=== PATIENT | male | born 1945 | race Caucasian/White ===

== ENCOUNTER 2021-08-07 14:15 | Inpatient (IN) | payer OTHER ==
[~2021-08-07] VITALS: Ht 172.7 cm; Wt 67.1 kg
[2021-08-07 14:19] VITALS: BP 141/84
[2021-08-07 14:48] VITALS: BP 152/58
--- NOTE | 2021-08-07 15:18 | NUR ---
PT AMBULATED WITH WALKER TO ER BED 12
--- NOTE | 2021-08-07 16:27 | NUR ---
RAD AT BEDSIDE
--- NOTE | 2021-08-07 16:29 | NUR ---
PATIENT DISCONNECTED FROM [employer]IST [employer] AND TX TO CT VIA GURNEY.
--- NOTE | 2021-08-07 16:31 | NUR ---
PT TAKEN TO CT VIA RICHARD
--- NOTE | 2021-08-07 16:35 | NUR ---
75 y/o M BIB daughter for ER evaluation from [facility] for + UA and request for IV antibiotics. Per daughter, patient c/o 1.5 weeks of dysuria. Daughter states (-) 07/29 but advised patient needs IV ABX after recent work-up. Pt also states left jaw pain. Non-complaint and decreased appetite. Denies fever, falls, SOB, nausea, vomiting, diarrhea. 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
[2021-08-07 17:23] LABS: BASOPHILS % (AUTO) 0.7 % (0.0-2.0); EOSINOPHILS # (AUTO) 0.2 K/uL (0-0.4); EOSINOPHILS % (AUTO) 3.1 % (0.0-4.0); HEMATOCRIT 40.1 % (36-52); HEMOGLOBIN 13.2 g/dL (12.0-18.0); LYMPHOCYTES % (AUTO) 19.5 % (20.5-51.1); MEAN CORPUSCULAR HEMOGLOBIN 30 pg (27-31); MEAN CORPUSCULAR HGB CONC 33 g/dL (33-37); MEAN CORPUSCULAR VOLUME 92.4 fL (80-94); MONOCYTES # (AUTO) 0.6 K/uL (0.8-1.0); MONOCYTES % (AUTO) 11.5 % (1.7-9.3); NEUTROPHILS # (AUTO) 3.3 K/uL (1.8-7.7); NEUTROPHILS % (AUTO) 65.2 % (42.2-75.2); PLATELET COUNT (AUTO) 144 K/uL (140-450); RED BLOOD CELL COUNT(AUTO) 4.34 MIL/uL (4.20-6.10); RED CELL DISTRIBUTION WIDTH 14.7 % (11.6-13.7); WHITE BLOOD COUNT (AUTO) 5.1 K/uL (4.8-10.8)
[2021-08-07 17:58] LABS: ALBUMIN 3.8 g/dL (3.4-5.0); ASPARTATE AMINOTRANSFERASE 19 U/L (15-37); CARBON DIOXIDE 29.1 mmol/L (21-32); CHLORIDE 103 mmol/L (98-107); GLUCOSE 111 mg/dL (74-106); POTASSIUM 4.1 mmol/L (3.5-5.1); SODIUM SERUM 137 mmol/L (136-145); TOTAL BILIRUBIN 0.5 mg/dL (0.0-1.0); UREA NITROGEN, BLOOD 21 mg/dL (7-18)
[2021-08-07 18:11] LABS: APPEARANCE,URINE CLEAR (CLEAR); BILIRUBIN,URINE NEGATIVE (NEGATIVE); BLOOD, URINE NEGATIVE (NEGATIVE); COLOR,URINE YELLOW (YELLOW); LEUKOCYTE ESTERASE ,URINE TRACE (NEGATIVE); NITRITE, URINE NEGATIVE (NEGATIVE); UGLUCOSE NEGATIVE (NEGATIVE)
[2021-08-07] MEDS ORDERED: PIPERACILLIN/TAZOBACTAM 3.375 GM in DEXTROSE 5% 50 ML IV ONE (18:50)
--- NOTE | 2021-08-07 18:55 | NUR ---
SWABS HANDED TO LAB
[2021-08-07] MEDS ORDERED: PIPERACILLIN/TAZOBACTAM 3.375 GM VIAL IV ONE (18:56)
[2021-08-07] MEDS ORDERED: NACL 0.9% 1,000 ML IV SCH (19:00)
--- NOTE | 2021-08-07 19:09 | NUR ---
Love (daughter) [phone] Requesting to be contacted upon bed placement.
--- NOTE | 2021-08-07 19:13 | NUR ---
Pt report given to MARVIN GALLEGOS. Transfer of care at this time.
--- NOTE | 2021-08-07 19:15 | NUR ---
RESTING COMFORTABLY IN BED 12. DAUGHTER HAS BEEN AT BEDSIDE AND IS TAKING BAG OF BELONGINGS HOME WITH HER. PTS WALKER AND SHOES BEING LEFT WITH HIM.
[2021-08-07] MEDS ORDERED: FLUO10CA21 PO (19:17)
[2021-08-07] MEDS ORDERED: ISOS60TE70 PO (19:17)
[2021-08-07] MEDS ORDERED: TAMS0.4C96 PO (19:17)
[2021-08-07] MEDS ORDERED: APIX5TAB PO (19:17)
[2021-08-07] MEDS ORDERED: MEMA5TAB PO (19:17)
[2021-08-07] MEDS ORDERED: ATOR40TA PO (19:17)
[2021-08-07] MEDS ORDERED: CARV6.25 PO (19:17)
[2021-08-07] MEDS ORDERED: SACU1TAB PO (19:17)
--- NOTE | 2021-08-07 20:55 | NUR ---
TO 122A VIA [employer]. BEDSIDE REPORT GIVEN TO EL SMITH
--- NOTE | 2021-08-07 21:00 | NUR ---
RECEIVED PT FROM ER VIA GURNEY. AWAKE, ALERT AND CONFUSED. VITAL SIGNS UPON ARRIVAL B/P-143/64; P-59; R-18; T-97.4;O2 SAT 99% ROOM AIR. NO SOB OR DISTRESS. NOT IN RAYO CATHETER. IV SITE IS ON RIGHT AC 20 G.
[2021-08-07] MEDS ORDERED: guaiFENesin DM 200/20 MG-10 ML 10 ML UDC PO PRN (22:55)
[2021-08-07] MEDS ORDERED: ONDANSETRON 4 MG/2 ML VIAL IM/IVP PRN (22:55)
[2021-08-07] MEDS ORDERED: POTASSIUM CHLORIDE 10 MEQ TABER PO PRN (22:55)
[2021-08-07] MEDS ORDERED: HYDROcodone/APAP 7.5/325 MG 1 TAB PO PRN (22:55)
[2021-08-07] MEDS ORDERED: ACETAMINOPHEN 325 MG TAB PO PRN (22:55)
[2021-08-07] MEDS ORDERED: ZOLPIDEM 5 MG TAB PO PRN (22:55)
[2021-08-07] MEDS ORDERED: DOCUSATE SODIUM 100 MG GELCAP PO PRN (22:55)
[2021-08-07 23:30] LABS: CHOL/HDL RATIO 2.7 (1-4.5); FREE T4 (FREE THYROXINE) 1.47 ng/dL (0.76-1.46); MAGNESIUM 2.4 mg/dL (1.8-2.4); PHOSPHORUS 4.6 mg/dL (2.5-4.9); THYROID STIMULATING HORMONE 0.46 uIU/mL (0.34-3.74)
[2021-08-07] MEDS: NACL 0.9% 1,000 ML IV SCH (23:33)
[2021-08-08] MEDS ORDERED: PIPERACILLIN/TAZOBACTAM 2.25 GM VIAL IV ONE ×2 (01:00→05:09)
--- NOTE | 2021-08-08 01:00 | NUR ---
PT IS ON STABLE CONDITION AND ASLEEP. IVF OF NACL RUNNING WELL AT 100 ML/HR, INTACT AND PATENT.
[2021-08-08] MEDS: NACL 0.9% 1,000 ML IV SCH ×2 (03:30→12:00)
[2021-08-08 04:00] VITALS: BP 151/76
[2021-08-08 05:38] LABS: BASOPHILS % (AUTO) 1.3 % (0.0-2.0); EOSINOPHILS # (AUTO) 0.2 K/uL (0-0.4); EOSINOPHILS % (AUTO) 6.7 % (0.0-4.0); HEMATOCRIT 42.1 % (36-52); LYMPHOCYTES # (AUTO) 1.1 K/uL (2.0-11.5); LYMPHOCYTES % (AUTO) 30.5 % (20.5-51.1); MEAN CORPUSCULAR HEMOGLOBIN 31 pg (27-31); MEAN CORPUSCULAR HGB CONC 33 g/dL (33-37); MEAN CORPUSCULAR VOLUME 91.9 fL (80-94); MONOCYTES # (AUTO) 0.4 K/uL (0.8-1.0); MONOCYTES % (AUTO) 11.8 % (1.7-9.3); NEUTROPHILS # (AUTO) 1.8 K/uL (1.8-7.7); NEUTROPHILS % (AUTO) 49.7 % (42.2-75.2); PLATELET COUNT (AUTO) 131 K/uL (140-450); RED BLOOD CELL COUNT(AUTO) 4.58 MIL/uL (4.20-6.10); RED CELL DISTRIBUTION WIDTH 15.1 % (11.6-13.7); WHITE BLOOD COUNT (AUTO) 3.7 K/uL (4.8-10.8)
[2021-08-08 05:53] LABS: ANION GAP 8.1 (8-16); CARBON DIOXIDE 29.4 mmol/L (21-32); CHLORIDE 106 mmol/L (98-107); GLUCOSE 98 mg/dL (74-106); POTASSIUM 3.5 mmol/L (3.5-5.1); SODIUM SERUM 140 mmol/L (136-145); UREA NITROGEN, BLOOD 13 mg/dL (7-18)
[2021-08-08] MEDS: PIPERACILLIN/TAZOBACTAM 2.25 GM in DEXTROSE 5% 50 ML IV SCH ×5 (06:00→17:18)
--- NOTE | 2021-08-08 06:00 | NUR ---
PT IS ASLEEP, IVF NACL IS RUNNING WELL WITH NO SIGN/SYMPTOM OF INFECTION ON IV SITE. ANTIBIOTIC ZOSYN GIVEN ORDERED WITH NO SIDE REACTION.
[2021-08-08 08:00] VITALS: BP 154/79
--- NOTE | 2021-08-08 08:00 | NUR ---
received report from the night nurse, pt is resting IN BED AWAKE.[email or web address]
[2021-08-08] MEDS: PANTOPRAZOLE 40 MG TABEC PO SCH (09:46)
--- NOTE | 2021-08-08 11:50 | NUR ---
DC PLANNING: THE PATIENT PRESENTED FROM [facility] WITH C/O DYSURIA, OUTPATIENT UA RESULTS REVIEWED BY ED MD WHICH SHOWS KLEBSIELLA. PATIENT HAS ALSO C/O JAW PAIN WITH DECREASED PO INTAKE. H/O DEMENTIA, HTN, CHF, APHASIA, CVA, CABG AND AICD. BNP 214, CXR AND MANDIBLE XRAY NEGATIVE FOR ACUTE FINDINGS, CT HEAD CONFIRMS H/O CVA. THE PATIENT WAS STARTED ON ZOSYN IV AND IVF'S. CM SPOKE WITH THE PATIENTS DAUGHTER MELISSA AT BEDSIDE, THE PATIENT HAS BEEN LIVING AT [facility] SINCE APRIL OF THIS YEAR. HE IS APHASIC AND PRIMARILY INTERACTIVE. HE WAS TREATED AT [facility] POST CVA AND THEN WENT TO [facility]. HE IS ABLE TO AMBULATE USING A FWW WITH STAND BY ASSIST BUT IS TOTAL CARE FOR ADL'S. MELISSA [place] IN THE [place] AND HAS ASKED THAT HER COUSIN AYAH PRATHER ([phone]) BE CONTACTED IF SHE IS UNAVAILABLE. IF THE PATIENT NEEDS CONTINUED IV ABX MELISSA WOULD LIKE HIM TO BE REFERRED TO [facility]. CM WILL FOLLOW.
--- NOTE | 2021-08-08 12:17 | NUR ---
GIGI PLANNING PATIENT HAS HX OF DEMENTIA AND IS APHESIC. SW MET WITH PATIENTS DAUGHTER MELISSA CASTREJON. MS. CASTREJON REPORTS BEING PATIENTS DPOA AND REPORTS PROVIDING COPY TO MEDICAL RECORDS. MS. CASTREJON REQUESTED ADDING AYAH PRATHER (RELATIVE) TO EMERGENCY CONTACT [phone]. MS. CASTREJON REPORTS THAT PATIENT HAS BEEN A RESIDENT OF [facility] SINCE MAY 07, 2021. PATIENT WAS WITH [facility] FOR TWO WEEKS IN AUGUST 19 AND THEN MOVED TO [facility] UNDER RESIDENTIAL CARE FOR 7 MONTHS BEFORE BEING PLACED AT [facility] IN APRIL 2021. PATIENT WAS DIAGNOSED WITH DEMENTIA IN SEPTEMBER 18. PATIENT IS REPORTED TO HAVE BEEN MEDICATION COMPLIANT UP UNTIL TWO WEEKS AGO. MS. CASTREJON REPORTS THAT PATIENT IS TOTAL ASSIST WITH THE FACILITY PROVIDING ASSISTANCE WITH ALL ADL'S. PATIENT IS FOLLOWED BY DR. GILL. MS. CASTREJON REPORTS THAT SHE IS WORKING CLOSELY IS WORKING CLOSELY WITH [facility] NURSE, WHO HAS BEEN IN TOUCH WITH YOVANAGIANLUCA GRACE IN THE EVENT THAT FATHER MUST BE IN SKILLED CARE FOR IV ANTIBIOTICS BEFORE RETURNING TO [facility].SW TO FOLLOW NEEDED.
[2021-08-08 12:58] VITALS: BP 154/79
[2021-08-08 16:00] VITALS: BP 146/73
--- NOTE | 2021-08-08 16:00 | NUR ---
PATIENT HAS BEEN SCREENED AND CATEGORIZED MODERATE NUTRITION RISK. PATIENT WILL BE SEEN WITHIN 3-5 DAYS OF ADMISSION. ANGELICA GREY RD
[2021-08-08 20:00] VITALS: BP 124/73
[2021-08-08] MEDS: ATORVASTATIN 20 MG TAB PO SCH (21:41)
[2021-08-08] MEDS: APIXABAN 2.5 MG TAB PO SCH (21:41)
--- NOTE | 2021-08-08 21:41 | NUR ---
ALL 2100 SCHEDULED MEDICATIONS ADMINISTERED ORDERED BY .
[2021-08-08] MEDS: carvediloL 6.25 MG TAB PO SCH (21:43)
[2021-08-09] VITALS: BP 128/65
[2021-08-09] MEDS: PIPERACILLIN/TAZOBACTAM 2.25 GM in DEXTROSE 5% 50 ML IV SCH ×3 (00:58→11:36)
--- NOTE | 2021-08-09 03:39 | NUR ---
PATIENT IS SLEEPING. NO SOB NOTED. RESPIRATION EVEN UNLABORED. CALL LIGHT WITHIN REACH.
--- NOTE | 2021-08-09 06:40 | NUR ---
ZOSYN ADMINISTERED ORDERED BY
[2021-08-09 06:53] LABS: ANION GAP 6.4 (8-16); CARBON DIOXIDE 29.6 mmol/L (21-32); CHLORIDE 108 mmol/L (98-107); GLUCOSE 101 mg/dL (74-106); SODIUM SERUM 140 mmol/L (136-145); UREA NITROGEN, BLOOD 9 mg/dL (7-18)
--- NOTE | 2021-08-09 07:12 | NUR ---
BEDSIDE ENDORSEMENT GIVEN TO AM NURSE FOR CONTINUITY OF CARE. PT IS IN STABLE CONDITION.
[2021-08-09 07:28] LABS: BASOPHILS # (AUTO) 0.1 K/uL (0.00-0.22); BASOPHILS % (AUTO) 1.7 % (0.0-2.0); EOSINOPHILS # (AUTO) 0.3 K/uL (0-0.4); EOSINOPHILS % (AUTO) 7.6 % (0.0-4.0); HEMATOCRIT 41.8 % (36-52); HEMOGLOBIN 13.9 g/dL (12.0-18.0); LYMPHOCYTES # (AUTO) 1.3 K/uL (2.0-11.5); LYMPHOCYTES % (AUTO) 30.9 % (20.5-51.1); MEAN CORPUSCULAR HEMOGLOBIN 31 pg (27-31); MEAN CORPUSCULAR HGB CONC 33 g/dL (33-37); MEAN CORPUSCULAR VOLUME 92.1 fL (80-94); MONOCYTES # (AUTO) 0.4 K/uL (0.8-1.0); MONOCYTES % (AUTO) 10.2 % (1.7-9.3); NEUTROPHILS % (AUTO) 49.6 % (42.2-75.2); PLATELET COUNT (AUTO) 142 K/uL (140-450); RED BLOOD CELL COUNT(AUTO) 4.53 MIL/uL (4.20-6.10); RED CELL DISTRIBUTION WIDTH 14.5 % (11.6-13.7); WHITE BLOOD COUNT (AUTO) 4.1 K/uL (4.8-10.8)
[2021-08-09 08:00] VITALS: BP 185/100
--- NOTE | 2021-08-09 08:00 | NUR ---
GOT REPORT FROM THE NIGHT NURSE, PT FAST ASLEEP THE BREATHING IS NOT LABORED, BED IN LOW POSITION.[id number]
[2021-08-09 08:07] LABS: T4 (THYROXINE) 8.1 ug/dL (4.5-12.0)
--- NOTE | 2021-08-09 08:37 | NUR ---
P.T. NOTES P.T. EVAL COMPLETED; REFER TO EVAL FOR DETAILS.
[2021-08-09] MEDS ORDERED: SULF-58 PO (08:41)
[2021-08-09] MEDS: FLUoxetine 10 MG CAP PO SCH ×2 (08:55→09:04)
[2021-08-09] MEDS: APIXABAN 2.5 MG TAB PO SCH ×2 (08:57→09:30)
[2021-08-09] MEDS: PANTOPRAZOLE 40 MG TABEC PO SCH (08:59)
[2021-08-09] MEDS ORDERED: MEMANTINE 10 MG TAB PO SCH (09:00)
[2021-08-09] MEDS ORDERED: TAMSULOSIN 0.4 MG CAP PO SCH (09:00)
[2021-08-09] MEDS ORDERED: ISOSORBIDE MONONITRATE 30 MG TABER PO SCH (09:00)
[2021-08-09] MEDS ORDERED: NON-FORMULARY ITEM (Isosorbide Mononitrate (Isosorbide Mononitrate ER) 1 TAB) PO SCH (09:00)
[2021-08-09] MEDS ORDERED: VALSARTAN 80 MG TAB PO SCH (09:00)
[2021-08-09] MEDS: carvediloL 6.25 MG TAB PO SCH ×2 (09:03→09:30)
[2021-08-09] MEDS: ATORVASTATIN 20 MG TAB PO SCH (09:30)
--- NOTE | 2021-08-09 11:59 | NUR ---
PT REFUSED HIS MORNING MED, ATTEMPTED TO CONVINCE THE PATIENT WITH OTHER NURSE BUT PT CONTINUE TO REFUSE, DR MENDOZA.[email or web address] [id number]
--- NOTE | 2021-08-09 12:19 | NUR ---
CALLED [facility] REGARDING DC ORDER IF THEY CAN PROVIDE TRANSPORTATION, THEY SAID THEY DON'T DO THAT. I CALLED SUNNY FROM [facility] FOR TRANSPORTATION AND GAVE AUTH # [id number]. WILL FOLLOW UP [facility].
[2021-08-09] MEDS: NACL 0.9% 1,000 ML IV SCH (12:55)
--- NOTE | 2021-08-09 15:00 | NUR ---
PT DISCHARGED, DISCHARGE INSTRUCTION GIVEN, IV AND ID BAND REMOVED, PT ESCORTED OUT, LEFT IN RNEY VIA TRANSPORTATION WITHOUT DISTRESS. [id number]
== END 2021-08-09 14:50 | disposition home or self-care (01) | DRG 689 ==
LOC: MED 14:15 → MMU 19:02 → MTU 20:29
PROVIDERS: ADMIT Family Medicine; ATTEND Family Medicine
DX: N39.0 Urinary tract infection, site not specified (principal); G93.41 Metabolic encephalopathy; R47.01 Aphasia; F03.90 Unspecified dementia, unspecified severity, without behavioral disturbance, psychotic disturbance, mood disturbance, and anxiety; F32.A Depression, unspecified; I11.0 Hypertensive heart disease with heart failure; Z20.822 Contact with and (suspected) exposure to COVID-19; I50.9 Heart failure, unspecified; Z95.0 Presence of cardiac pacemaker; Z86.73 Personal history of transient ischemic attack (TIA), and cerebral infarction without residual deficits
CPT/HCPCS: 36415; 70100; 70450; 71045; 80048; 80053; 81003; 82150; 83036; 83605; 83690; 83735; 83880; 84100; 84436; 84439; 84443; 84479; 84484; 85025; 87040; 87081; 87086; 93005; 96365; 97112; 97116; 99285; J2543; J7060

== ENCOUNTER 2022-02-24 22:54 | Emergency (ER) | payer OTHER, MEDICAID ==
[~2022-02-24] VITALS: Ht 175.3 cm; Wt 61.2 kg
[~2022-02-24 22:54] MED LIST: APIX5TAB PO; ATOR40TA PO; CARV6.25 PO; CLOP75TA55 PO; FLUO10CA21 PO; ISOS60TE70 PO; MEMA5TAB PO; ROC2I IV; SACU1TAB PO; TAMS0.4C96 PO
[2022-02-24 22:58] VITALS: BP 108/54
--- NOTE | 2022-02-24 23:04 | NUR ---
pt offloaded to bed 2
--- NOTE | 2022-02-25 00:37 | NUR ---
unable carlson cath insertion 18 South African coude and [address] ER aware
[2022-02-25 00:49] LABS: BASOPHILS % (AUTO) 0.8 % (0.0-2.0); EOSINOPHILS # (AUTO) 0.2 K/uL (0-0.4); EOSINOPHILS % (AUTO) 4.2 % (0.0-4.0); HEMATOCRIT 30.1 % (36-52); HEMOGLOBIN 10.1 g/dL (12.0-18.0); MEAN CORPUSCULAR HEMOGLOBIN 32 pg (27-31); MEAN CORPUSCULAR HGB CONC 34 g/dL (33-37); MEAN CORPUSCULAR VOLUME 94.7 fL (80-94); MONOCYTES # (AUTO) 0.6 K/uL (0.8-1.0); MONOCYTES % (AUTO) 11.8 % (1.7-9.3); NEUTROPHILS % (AUTO) 62.2 % (42.2-75.2); PLATELET COUNT (AUTO) 105 K/uL (140-450); RED BLOOD CELL COUNT(AUTO) 3.17 MIL/uL (4.20-6.10); RED CELL DISTRIBUTION WIDTH 14.7 % (11.6-13.7); WHITE BLOOD COUNT (AUTO) 4.9 K/uL (4.8-10.8)
[2022-02-25 01:03] LABS: PROTHROMBIN TIME 11.6 secs (10.8-13.4)
[2022-02-25 01:11] LABS: ALBUMIN 2.5 g/dL (3.4-5.0); ASPARTATE AMINOTRANSFERASE 15 U/L (15-37); CARBON DIOXIDE 32.1 mmol/L (21-32); CHLORIDE 108 mmol/L (98-107); GLUCOSE 105 mg/dL (74-106); POTASSIUM 4.1 mmol/L (3.5-5.1); SODIUM SERUM 144 mmol/L (136-145); TOTAL BILIRUBIN 0.4 mg/dL (0.0-1.0); UREA NITROGEN, BLOOD 19 mg/dL (7-18)
--- NOTE | 2022-02-25 07:30 | NUR ---
RECEIVED PATIENT REPORT FROM ER NURSE. PT IS STABLE.
--- NOTE | 2022-02-25 07:50 | NUR ---
DR. DUMONT AT BEDSIDE PLACING CAUDE CATHETER.
--- NOTE | 2022-02-25 07:56 | NUR ---
MERLY FONTENOT AT BEDSIDE.
--- NOTE | 2022-02-25 08:00 | NUR ---
18 [address] IN [address].
--- NOTE | 2022-02-25 08:10 | NUR ---
NOTED STAGE 2 SACRAL WOUND ON PATIENT. PLACED DRESSING. KEPT C/D/I
[2022-02-25 10:11] LABS: APPEARANCE,URINE CLOUDY (CLEAR); BILIRUBIN,URINE NEGATIVE (NEGATIVE); BLOOD, URINE 3+ (NEGATIVE); COLOR,URINE YELLOW (YELLOW); LEUKOCYTE ESTERASE ,URINE TRACE (NEGATIVE); NITRITE, URINE POSITIVE (NEGATIVE); UGLUCOSE NEGATIVE (NEGATIVE)
--- NOTE | 2022-02-25 10:12 | NUR ---
CONTACTED [facility] AND ENDORSED REPORT TO CATRINA DEE. HE IS AWARE AND TRANSPORTATION WILL BE ARRIVING IN 40-45 MINS
[2022-02-25 10:20] LABS: RBC,URINE TOO NUMEROUS TO COUN /HPF (0-5)
--- NOTE | 2022-02-25 10:38 | NUR ---
IV removed, catheter intact and site benign. Applied folded 4x4 gauze and tape to stop bleeding.
--- NOTE | 2022-02-25 10:46 | NUR ---
TRANSPORTATION AT BEDSIDE.
[2022-02-25 10:47] VITALS: BP 130/52
--- NOTE | 2022-02-25 10:47 | NUR ---
Patient discharged with v/s stable. Written and verbal after care instructions given and explained. Patient verbalized understanding. Ambulance Transport with [facility] to [facility]. All questions addressed prior to discharge. Advised to follow up with PMD.
--- NOTE | 2022-02-28 11:30 | NUR ---
LATE ENRTY. RECEIVED POSITIVE URINE RESULT. FORM GIVEN TO DR JOSEPH AND STATED HE WANTED PT TO COME BACK FOR RE-EVALUATION. CALLED [facility], SPOKE WITH PTS NURSE MARILYN AND INFORMED HIM OF RESULTS AND TO BRING PT BACK. FAXED RESULTS TO [phone]. DR JOSEPH AWARE
== END 2022-02-25 10:47 ==
LOC: MED 22:54
DX: S37.30XA Unspecified injury of urethra, initial encounter (principal); Z20.822 Contact with and (suspected) exposure to COVID-19; N39.0 Urinary tract infection, site not specified; R31.9 Hematuria, unspecified; I50.9 Heart failure, unspecified; I10 Essential (primary) hypertension; F03.90 Unspecified dementia, unspecified severity, without behavioral disturbance, psychotic disturbance, mood disturbance, and anxiety; Z86.73 Personal history of transient ischemic attack (TIA), and cerebral infarction without residual deficits; Z79.899 Other long term (current) drug therapy; X58.XXXA Exposure to other specified factors, initial encounter; Y93.89 Activity, other specified; Y92.89 Other specified places as the place of occurrence of the external cause; Y99.8 Other external cause status
CPT/HCPCS: 36415; 51702; 80053; 81001; 85025; 85610; 85730; 87086; 87186; 99285

== ENCOUNTER 2022-03-02 10:54 | Inpatient (IN) | payer OTHER, MEDICAID ==
[~2022-03-02] VITALS: Ht 177.8 cm; Wt 83.5 kg
[2022-03-02 10:59] VITALS: BP 106/46
--- NOTE | 2022-03-02 11:15 | NUR ---
76YO MALE PT [facility] C/O HEMATURIA XTODAY. PRESENTS WITH 22G RAYO CATH W/ ACTIVE BLEEDING NOTED FROM [facility] AND IN CATH BAG. PT WAS RECENTLY SEEN IN ER ON 02/24 AND HAD RAYO REPLACED/DC W/ 18G FR. STATES ABDOMINAL/PENILE PAIN ON MOVEMENT OR TOUCH. PT AAOX0 AT BASELINE, AROUSABLE TO TOUCH/VOICE AND ABLE TO FOLLOW SIMPLE INSTRUCTIONS. RESPIRATIONS EVEN AND UNLABORED. ON LOCATION MANAGER HX: BPH, UTI, AFIB, PACEMAKER,DIMENTIA NKA
[2022-03-02] MEDS ORDERED: NACL 0.9% 1,000 ML IV ONE (11:20)
--- NOTE | 2022-03-02 11:20 | NUR ---
LAB AT BEDSIDE
--- NOTE | 2022-03-02 11:22 | NUR ---
CHRISTOPHER SWAB COLLECTED AND HANDED TO SOLAR ENERGY SYSTEM INSTALLER
[2022-03-02 11:39] LABS: BASOPHILS % (AUTO) 0.7 % (0.0-2.0); EOSINOPHILS # (AUTO) 0.1 K/uL (0-0.4); EOSINOPHILS % (AUTO) 2.5 % (0.0-4.0); HEMOGLOBIN 8.6 g/dL (12.0-18.0); LYMPHOCYTES # (AUTO) 0.7 K/uL (2.0-11.5); LYMPHOCYTES % (AUTO) 13.1 % (20.5-51.1); MEAN CORPUSCULAR HEMOGLOBIN 31 pg (27-31); MEAN CORPUSCULAR HGB CONC 33 g/dL (33-37); MEAN CORPUSCULAR VOLUME 94.3 fL (80-94); MONOCYTES # (AUTO) 0.5 K/uL (0.8-1.0); NEUTROPHILS # (AUTO) 3.9 K/uL (1.8-7.7); NEUTROPHILS % (AUTO) 74.7 % (42.2-75.2); PLATELET COUNT (AUTO) 147 K/uL (140-450); RED BLOOD CELL COUNT(AUTO) 2.75 MIL/uL (4.20-6.10); RED CELL DISTRIBUTION WIDTH 14.5 % (11.6-13.7); WHITE BLOOD COUNT (AUTO) 5.2 K/uL (4.8-10.8)
--- NOTE | 2022-03-02 11:51 | NUR ---
CONTACTED NURSE AT [facility], SPOKE WITH LUIZ. STATED THAT PTS NORMAL MENTATION IS CONFUSED. A/O X0- UNAWARE OF NAME. NURSE STATED THAT PT PULLED OUT HIS RAYO 02/24, CAME TO THIS ER TO HAD IT PLACED BACK IN, 18F WAS REPORTED. HE STATED THAT PT HAS BEEN BLEEDING SINCE, YESTERDAY WAS LIGHT PINK AND TODAY WAS BRIGHT RED BLOOD. PT PRESENTED TO ED WITH 22F RAYO. LUIZ STATED THAT HE WAS GIVEN REPORT OF AN 18F IN BUT A TREATMENT NURSE WAS WITH PT AND FLUSHED THE CATHETER AND MAY HAVE CHANGED IT. DR ADAM AWARE, VERBAL ORDER TO REMOVE CATHETER AND INSERT 18F.
[2022-03-02 11:53] LABS: ALBUMIN 2.6 g/dL (3.4-5.0); ANION GAP 12.2 (8-16); ASPARTATE AMINOTRANSFERASE 17 U/L (15-37); CARBON DIOXIDE 26.7 mmol/L (21-32); CHLORIDE 107 mmol/L (98-107); GLUCOSE 104 mg/dL (74-106); POTASSIUM 3.9 mmol/L (3.5-5.1); SODIUM SERUM 142 mmol/L (136-145); TOTAL BILIRUBIN 0.3 mg/dL (0.0-1.0); UREA NITROGEN, BLOOD 18 mg/dL (7-18)
--- NOTE | 2022-03-02 12:10 | NUR ---
ATTEMPTED 18G COUDE AND 20G Bucio catheter INSERTION with utilizing sterile technique. CATH INSERTION UNSUCCESSFUL X2. MD ADAM MADE AWARE.
[2022-03-02] MEDS ORDERED: LORazepam 2 MG/ML VIAL IVP PRN (13:20)
[2022-03-02] MEDS ORDERED: ONDANSETRON 4 MG/2 ML VIAL IVP PRN (13:20)
[2022-03-02] MEDS ORDERED: POTASSIUM CHLORIDE 10 MEQ TABER PO PRN (13:20)
[2022-03-02] MEDS ORDERED: ACETAMINOPHEN 325 MG TAB PO PRN (13:20)
[2022-03-02] MEDS ORDERED: MORPHINE SULFATE 2 MG/ML SYR IVP PRN (13:20)
[2022-03-02] MEDS ORDERED: ZOLPIDEM 10 MG TAB PO PRN (13:20)
[2022-03-02] MEDS ORDERED: MAG SULF 2000 MG/WATER PREMIX 50 ML IV PRN (13:20)
[2022-03-02] MEDS ORDERED: DOCUSATE SODIUM 100 MG GELCAP PO PRN (13:20)
[2022-03-02] MEDS ORDERED: VANCOMYCIN 1,000 MG in DEXTROSE 5% 250 ML IV ONE (14:00)
--- NOTE | 2022-03-02 14:00 | NUR ---
pt at rest w/ eyes closed. respirations even and unlabored. bed at lowest position, bed rails upx2. on cardiac rn.
[2022-03-02] MEDS ORDERED: VANCOMYCIN 1,000 MG VIAL ONE (14:03)
[2022-03-02] MEDS: DEXT 5% /NACL 0.9% 1,000 ML IV SCH (14:09)
--- NOTE | 2022-03-02 15:59 | NUR ---
MD RODRIGUES NOTIFIED OF PT CONTINUED ACTIVE BLEEDING. WRITTEN ORDERS RECEIVED , UPDATED AND TO BE CARRIED OUT. STAT CBC TRANSFUSE 1 UNIT PRBCs UPDATE MD KNAPP
--- NOTE | 2022-03-02 16:14 | NUR ---
Patient will be admitted to care of MD RODRIGUES. Admited to TELE. Will go to room 123B . Belongings list completed. Report to ANNE GALLEGOS.
[2022-03-02] MEDS: carvediloL 6.25 MG TAB PO SCH (16:52)
--- NOTE | 2022-03-02 16:57 | NUR ---
The patient's care was reviewed and supervised by [place] [facility] ED, RN.
[2022-03-02 17:49] VITALS: BP 132/54
--- NOTE | 2022-03-02 17:50 | NUR ---
PT ADMITTED NON COMPLIANT AND COMBATIVE MD KNAPP UROLOGIST IN TO INSERT RAYO CATHETER PT BECAME COMBATIVE MD KNAPP CALLED PT SCOTT WILSON WHILE AT BEDSIDE AND NIECE STEVE AGREES TO LEAVE RAYO CATH OUT NIECE MADE AWARE PT COMBATIVE AND REFUSING TO BE TOUCHED PT REFUSED COREG WHEN OFFERED TO TELEPHONE TO PT TO SPEAK TO NIECE AND HEAR NIECE VOICE PT REFUSED CALL LIGHT IN REACH ALL NEEDS [id number] ASSESSMENT COMPLETED SKIN INTACT HEMATURIA NOTED ASSESSMENT COMPLETED AND PLAN OF CARE REVIEWED
--- NOTE | 2022-03-02 18:57 | NUR ---
PATIENT ACTIVELY BLEEDING HEMATURIA FRESH RED BLOOD WITH CLOTS 1 UNIT PRBC ORDERED BLOOD BANK WILL CALL WHEN BLOOD IS READY WILL ENDORSE CARE TO ONCOMING NOC RN
[2022-03-02 20:00] VITALS: BP 122/57
--- NOTE | 2022-03-02 20:00 | NUR ---
WENT TO ER TO GET THE INFROMED CONSENT FOR THE BLOOD TRANSFUSION FROM DR BECK. PER DR BECK HE WILL COME TO THE UNIT TO SPEAK WITH THE PATIENT AND THE PATIENT NIECE OVER THE PHONE TO EXPLAIN ABOUT THE TRANSFUSION.
--- NOTE | 2022-03-02 20:00 | NUR ---
RECEIVED REPORT FROM DAY NURSE FOR CONTINUITY OF CARE. RECEIVED PATIENT LAYING IN BED. PATIENT REFUSED TO BE TOUCH AND STARTED TO PUSH AWAY MY HAND WHEN I TOUCH HIM. OTHERWISE PT NOT IN ANY DISTRESS. VSS, AFEBRILE, SATING 99% ON RA. SR W/ PAC ON TELE, HR-61. FALL PRECAUTION IMPLEMENTED. INSTRUCTED NOT TO GET OUT OF BED WITHOUT ASSISTANCE. PATIENT NEEDS REINFORCEMENT WITH TEACHING. PT CONFUSED MOST OF THE TIME. CALL LIGHT WITHIN REACH. WILL CONTINUE POC AND MONITORING.
--- NOTE | 2022-03-02 20:09 | NUR ---
CALLED PATIENT SCOTT POON TO INFORM HER THAT WE NEED A CONSENT FROM HER TO GIVE THE PATIENT A BLOOD TRANSFUSION. ALSO PATIENT SCOTT POON MADE AWARE THAT THE ER MD, DR BECK WILL ALSO SPEAK WITH HER TO EXPLAIN ABOUT THE TRANSFUSION. INSTRUCTED MS POON TO BE ON STANDBY AND WILL CALL HER SOON. MS POON VERBALIZED UNDERSTANDING.
[2022-03-02] MEDS: ATORVASTATIN 20 MG TAB PO SCH (21:00)
[2022-03-03] VITALS: BP 105/49
--- NOTE | 2022-03-03 01:15 | NUR ---
CALLED ER TO GET THE INFORM CONSENT FROM DR BECK BUT PER ER ALIRIO BECK LEFT ALREADY. PT SCOTT POON CALLED AND ASKED ABOUT THE BLOOD TRANSFUSION IF ITS GOING TO BE DONE TONIGHT. AYAH MADE AWARE THAT I NEED TO SPEAK TO THE OTHER ER MD TO GET THE INFORM CONSENT FOR THE BLOOD TRANSFUSION THEN I'LL CALL HER BACK.
--- NOTE | 2022-03-03 01:35 | NUR ---
WENT TO ER AND SPOKE WITH DR PORTILLO REGARDING OBTAINING THE INFORMED CONSENT FOR THE BLOOD TRANSFUSION. EXPLAINED TO MD THAT DR BECK IS SUPPOSED TO SIGN THE CONSENT BUT LEFT THE HOSPITAL ALREADY. DR PORTILLO SIGNED THE INFORMED CONSENT. I CALLED THE PT SCOTT POON AND OBTAINED THE TELEPHONE CONSENT WITH ANOTHER RN HANSEL CHAVEZ FOR THE BLOOD TRANSFUSION. WILL PREPARE THE PATIENT FOR THE TRANSFUSION.
--- NOTE | 2022-03-03 02:16 | NUR ---
PATIENT ASLEEP AT THIS TIME. VISIBLE CHEST RISE AND FALL NOTED. PT NOT IN ANY DISTRESS. SAFETY MEASURES IN PLACED.WILL CONTINUE MONITORING.
--- NOTE | 2022-03-03 02:50 | NUR ---
STARTED THE BLOOD TRANSFUSION ORDERED. PRE TRANSFUSION VS: BP-114/55, HR-60, TEMP-98.0, RR-18, NO PAIN. WILL CONTINUE BLOOD TRANSFUSION AND TO OBSERVE THE PATIENT FOR ANY TRANSFUSION REACTION.
--- NOTE | 2022-03-03 03:30 | NUR ---
AFTER TRANSFUSING THE BLOOD FOR MORE THAN 15 MINUTES. NO SIGN AND SYMPTOMS OF BLOOD TRANSFUSION REACTION NOTED. WILL CONTINUE TO MONITOR THE PATIENT WHILE THE BLOOD IS TRANSFUSING.
[2022-03-03] MEDS: DEXT 5% /NACL 0.9% 1,000 ML IV SCH ×2 (03:43→15:59)
[2022-03-03 04:00] VITALS: BP 112/55
--- NOTE | 2022-03-03 04:00 | NUR ---
PATIENT VITAL SIGNS STABLE, AFEBRILE,SATING 100% ON RA. NOT IN ANY DISTRESS AND NO COMPLAIN AT THIS TIME. SR ON TELE, HR-61.
--- NOTE | 2022-03-03 04:00 | NUR ---
PATIENT PULLED OUT THE IV ON THE RT AC WHERE BLOOD TRANSFUSIONS WAS INFUSING. PLACED A NEW IV ON THE LEFT UPPER ARM, GAUGE 22. PATIENT WAS COOPERATIVE AND TOLERATED IT WELL. CONTINUED THE BLOOD TRANSFUSION.
--- NOTE | 2022-03-03 06:00 | NUR ---
NO ACUTE EVENT THROUGHOUT THE NIGHT. PATIENT STABLE AND NOT IN ANY DISTRESS. NO COMPLAIN AT THIS TIME. ALL NEEDS ATTENDED. WILL ENDORSE THE PATIENT TO THE ONCOMING NURSE FOR CONTINUITY OF CARE.
--- NOTE | 2022-03-03 06:22 | NUR ---
1 UNIT PRBC TRANSFUSED ORDERED. PATIENT TOLERATED IT WELL NO TRANSFUSION REACTION NOTED. POST TRANSFUSION VS. BP-136/76, HR- 66, RR-17, TEMP- 98.1, SATING -99% ON RA.
--- NOTE | 2022-03-03 06:36 | NUR ---
JUST SCANTY BLEEDING NOTED WHEN PATIENT URINATED ON HIS DIAPER. NO CLOTS ALSO NOTED.
--- NOTE | 2022-03-03 07:33 | NUR ---
ENDORSED PATIENT TO DAY NURSE FOR CONTINUITY OF CARE. PATIENT STABLE AND NOT IN ANY DISTRESS. SIGNING OFF.
--- NOTE | 2022-03-03 07:34 | NUR ---
RECEIVED REP[ORT FROM RN MJ FOR CONTINUITY OF CARE. PT AWAKE IN BED. RESPIRATIONS EVEN AND UNLABORED ON RA. NO DISTRESS NOTED. ON PACKAGING MACHINE SUPPLIES DISTRIBUTOR. NPO EXCEPT MEDS. PT AND DIRECTOR OF DEMENTIA OPERATIONS AWARE. NPO EXCEPT MEDS SIGN PLACED AT THE PT'S DOOR. PT WITH DIAPER. IV SITE ON TOBI 22G, INFUSING IVF. PT JUST FINISHED WITH BLOOD TRANSFUSION. NO BLOOD TRANSFUSION REACTION NOTED. CALL LIGHT WITHIN REACH. SAFETY PRECAUTIONS IN PLACE. PT CLOSELY MONITORED.
[2022-03-03 08:00] VITALS: BP 126/49
[2022-03-03] MEDS: carvediloL 6.25 MG TAB PO SCH ×2 (08:00→16:26)
--- NOTE | 2022-03-03 08:00 | NUR ---
PT CHECKED AND SEEN BY DR LUKAS DUMONT.
--- NOTE | 2022-03-03 08:01 | NUR ---
PER DR GAYTAN, BLADDER SCAN WHEN NEEDED. PT ABLE TO VOID 2X LAST NIGHT PER AUTO SEAT COVER INSTALLER NURSE. AWARE.
[2022-03-03] MEDS: TAMSULOSIN 0.4 MG CAP PO SCH (08:30)
[2022-03-03] MEDS: FINASTERIDE 5 MG TAB PO SCH (08:59)
--- NOTE | 2022-03-03 08:59 | NUR ---
PT REFUSED TO TAKE SCHEDULED MEDS. RISKS AND BENEFITS EXPLAINED. PT VERBALIZED UNDERSTANDING BUT STILL REFUSED TO TAKE MEDS.
--- NOTE | 2022-03-03 09:20 | NUR ---
PT CHECKED AND SEEN BY DR VILLA. INFORMED MD THAT PT WAS REFUSING ALL HIS MEDS.
--- NOTE | 2022-03-03 10:43 | NUR ---
PATIENT HAS BEEN SCREENED AND CATEGORIZED MODERATE NUTRITION RISK. PATIENT WILL BE SEEN WITHIN 3-5 DAYS OF ADMISSION. REVIEWED BY ANGELICA GREY RD
[2022-03-03] MEDS: FLUoxetine 10 MG CAP PO SCH (10:52)
[2022-03-03 10:54] LABS: HEMATOCRIT 22.8 % (36-52); HEMOGLOBIN 7.6 g/dL (12.0-18.0)
[2022-03-03 10:55] LABS: EOSINOPHILS # (AUTO) 0.2 K/uL (0-0.4); EOSINOPHILS % (AUTO) 6.4 % (0.0-4.0); HEMATOCRIT 22.8 % (36-52); HEMOGLOBIN 7.6 g/dL (12.0-18.0); LYMPHOCYTES # (AUTO) 0.8 K/uL (2.0-11.5); LYMPHOCYTES % (AUTO) 20.3 % (20.5-51.1); MEAN CORPUSCULAR HEMOGLOBIN 31 pg (27-31); MEAN CORPUSCULAR HGB CONC 33 g/dL (33-37); MEAN CORPUSCULAR VOLUME 92.9 fL (80-94); MONOCYTES # (AUTO) 0.3 K/uL (0.8-1.0); MONOCYTES % (AUTO) 8.8 % (1.7-9.3); NEUTROPHILS # (AUTO) 2.4 K/uL (1.8-7.7); NEUTROPHILS % (AUTO) 63.5 % (42.2-75.2); PLATELET COUNT (AUTO) 141 K/uL (140-450); RED BLOOD CELL COUNT(AUTO) 2.45 MIL/uL (4.20-6.10); RED CELL DISTRIBUTION WIDTH 14.7 % (11.6-13.7); WHITE BLOOD COUNT (AUTO) 3.8 K/uL (4.8-10.8)
[2022-03-03 11:04] LABS: ANION GAP 9.7 (8-16); CARBON DIOXIDE 28.4 mmol/L (21-32); CHLORIDE 109 mmol/L (98-107); CREATININE 0.8 mg/dL (0.6-1.3); GLUCOSE 99 mg/dL (74-106); POTASSIUM 4.1 mmol/L (3.5-5.1); SODIUM SERUM 143 mmol/L (136-145); UREA NITROGEN, BLOOD 14 mg/dL (7-18)
--- NOTE | 2022-03-03 11:17 | NUR ---
PT TOOK HIS SCHEDULED MED. CLEANED AND CHANGED PT DIAPER. NOTED MODERATE HEMATURIA. HAD 1 LARGE BM. LEFT PT COMFORTABLY LYING IN BED. CALL LIGHT WITHIN REACH. SAFETY PRECAUTIONS IN PLACE.
--- NOTE | 2022-03-03 13:00 | NUR ---
DISCHARGE PLANNING PATIENT IS A 76 YEAR OLD MALE ADMITTED TO THE [facility]/ED ON 03/02/2022 DUE TO HEMATURIA. SW ATTEMPTED TO MEET WITH PATIENT TO COLLECT AND GATHER HIS COLLATERAL INFORMATION PATIENT WAS AWAKE BUT NOT ALERT UNABLE TO PROVIDE HIS INFORMATION. SW CALL PATIENT'S DAUGHTER MELISSA VALERIO AT AND SHE REPORTED THAT SHE IS PATIENT'S POA AND THAT PATIENT HAS ADVANCE DEMENTIA AND IS IN A [facility]AC[facility]. PER PATIENT'S DAUGHTER HE IS NO LONGER ABLE TO STAY IN THE ASSISTING LIVING IF PATIENT HAS ANY MEDICAL NEEDS, PATIENT PLAN FOR DISCHARGE IS TO GO TO SNF WHERE HE WAS PLACE BEFORE IN [facility] UNTIL HE IS BETTER. PER PATIENT'S DAUGHTER THERE IS NO ISSUES WITH HIS CARE AT THE FACILITY AND WITH MEDICATIONS. PER PATIENT'S DAUGHTER HE HAS A WALKER AT THE FACILITY HIS ONLY DME. PATIENT'S DAUGHTER REPORTED WANTING FOR PATIENT TO GO BACK TO A SNF FACILITY FOR SOME TIME TO RECUPERATE,AND NO LONGER HAS A CATERER AND THEN RETURN TO ASSISTING LIVING. PER PATIENT'S DAUGHTER WANT PATIENT TO GO TO SNF FACILITY WHEN PATIENT IS READY AND STABLE FOR DISCHARGE. SW THANKED HER FOR HER INFORMATION AND ENDED THE CONVERSATION. MALU/CM WILL FOLLOW UP NEEDED.
--- NOTE | 2022-03-03 14:03 | NUR ---
PT SLEEPING. NO DISTRESS NOTED. NO SIGNS OF PAIN. WILL CONTINUE TO MONITOR.
[2022-03-03 16:00] VITALS: BP 136/65
--- NOTE | 2022-03-03 16:52 | NUR ---
ADMINISTERED DUE MED. PT COMPLIANT, TOLERATED WELL. CLEANED AND CHANGED PT DIAPER. NOTED HEMATURIA. PT HAD BM. REPOSITIONED PT. PT REMAINED CLEAN AND DRY.
--- NOTE | 2022-03-03 18:39 | NUR ---
NOTED MODERATE AMOUNT OF HEMATURIA. PT VOIDED 4X DURING THE DAY. NO COMPLAINTS OF PAIN. WILL ENDORSE TO POLICE LIEUTENANT NURSE.
--- NOTE | 2022-03-03 19:35 | NUR ---
RECEIVED ENDORSEMENT FROM DAY SHIFT NURSE FOR CONTINUITY OF CARE. PT IS AWAKE, ALERT X 2. IV SALINE LOCK ON LEFT UPPER ARM INTACT. D5NS INFUSING WELL. NOTED PT HOLD IV TUBING IN HIS LEFT HAND. PT IS NPO EXCEPT MEDS.
--- NOTE | 2022-03-03 19:36 | NUR ---
ENDORSED PT TO NURSE SMITH FOR CONTINUITY OF CARE. ALL NEEDS MET THROUGHOUT SHIFT. PT IS STABLE.
[2022-03-03 20:00] VITALS: BP 136/43
--- NOTE | 2022-03-03 21:15 | NUR ---
PT PULLED OUT IV BIOPHYSICS PROFESSOR AND IV TUBING. APPROACHED PT, PT A LITTLE BIT CALM AND STOP FROM PULLING IV TUBING.
[2022-03-03] MEDS: ATORVASTATIN 20 MG TAB PO SCH (21:46)
--- NOTE | 2022-03-03 21:46 | NUR ---
PT REFUSED ATORVASTATIN MEDICATION, EXPLAINED RISKS & BENEFITS X 3, PT STILL REFUSED.
--- NOTE | 2022-03-03 22:30 | NUR ---
CHANGE PT DIAPER, NOTED BLEEDING FROM PRIVATE AREA. CLEANSED AND CLEAN PT, DIAPER CHANGED.
--- NOTE | 2022-03-03 23:30 | NUR ---
TALKED TO DAUGHTER YADIRA, DAUGHTER IS WORRY ABOUT PT AND WANTS PT TO TAKE PAIN MEDICATION. VERBALIZED TO DAUGHTER THAT THIS NURSE WILL CHECK AND OFFER PT THE PRN PAIN MEDICATION ORDER.
--- NOTE | 2022-03-03 23:45 | NUR ---
CHECK ON PT, PT NOTED ASLEEP.
--- NOTE | 2022-03-04 00:56 | NUR ---
STEVE, PT'S NIECE CALLED TO ASK ABOUT PT. NIECE STATED SHE WOULD COME IN THE MORNING TO TALK TO THE PT NOT TO REFUSE MEDICATIONS.
--- NOTE | 2022-03-04 04:15 | NUR ---
PT PULLED OUT IV, IV TUBING BREAKS, OFFER HELP, PT REFUSED WITH FACE FROWNING.
--- NOTE | 2022-03-04 04:15 | NUR ---
APPROACHED PT FOR VITAL SIGNS CHECK, PT AGREE TO BE CHECKED. BUT LATER ON AFTER BP CUFF ATTACHED TO RIGHT ARM, PT REFUSED AND PULLED OUT THE BP CUFF. PT SAID: "NO WAY". EXPLAINED RISKS AND BENEFITS, PT STILL REFUSED.
--- NOTE | 2022-03-04 05:52 | NUR ---
LAB REPORTED PT REFUSED TO HAVE BLOOD DRAWN.
--- NOTE | 2022-03-04 05:55 | NUR ---
PT REFUSED FOR DIAPER CHANGED. APPROACHED AND EXPLAINED TO PT THE BENEFITS AND RISKS, PT SHAKE HIS HEAD AND CLOSE HIS EYES.
--- NOTE | 2022-03-04 06:44 | NUR ---
BLOOD SUGAR CHECKED = 129, NO SLIDING SCALE COVERAGE.
--- NOTE | 2022-03-04 06:44 | NUR ---
PLS DISREGARD PREVIOUS NOTES AT 0644 REGARDING BLOOD SUGAR CHECK, IT MISTAKEN NOTES. THIS IS FOR DIFFERENT PT.
--- NOTE | 2022-03-04 07:18 | NUR ---
RECEIVED REPORT FROM LOAN REPRESENTATIVE NURSE SARAH FOR CONTINUITY OF CARE. PT AWAKE IN BED. RESPIRATIONS EVEN AND UNLABORED ON RA. NO COMPLAINTS OF PAIN. NO DISTRESS NOTED. IV TUBING BROKEN. PER LOAN REPRESENTATIVE NURSE, PT PULLED OUT IV TUBING AROUND MIDNIGHT, PT REFUSED MEDS, V/S, LABS AND DIAPER CHANGE. DISCONNECTED PT FROM THE BROKEN IV TUBING. IV LINE STILL FLUSHING. ATTEMPTED TO CONNECT PT FROM IVF BUT PT STATED "NO" WITH FACE FROWNED AND ARMS KEPT IN HIS CHEST. RISKS AND BENEFITS EXPLAINED. PT VERBALIZED UNDERSTANDING BUT PT STILL REFUSED. CALL LIGHT WITHIN REACH. SAFETY PRECAUTIONS IN PLACE.
--- NOTE | 2022-03-04 07:18 | NUR ---
RECEIVED REPORT FROM RESOURCE ANALYST NURSE SARAH FOR CONTINUITY OF CARE. PT AWAKE, IN BED. RESPIRATIONS EVEN AND UNLABORED ON RA. NO DISTRESS NOTED. NO COMPLAINTS OF PAIN. ON CRITICAL CARE UNIT NURSE. SKIN INTACT, WARM AND DRY TO TOUCH. IV SITE ON TOBI G22, SL. CALL LIGHT WITHIN REACH. SAFETY PRECAUTIONS IN PLACE. Addendum: 03/04/22 at 0850 by Rajesh Cuevas LVN WRONG PT.
--- NOTE | 2022-03-04 07:55 | NUR ---
PT REFUSED V/S AND SCHEDULED MED. OFFERED DIAPER CHANGE. PT REFUSED AND DOESN'T WANT TO GET TOUCHED. CAN LINE OPERATOR CAME BUT PT REFUSED LABS. PT VERY AGGRESSIVE. RISKS AND BENEFITS EXPLAINED. PT VERBALIZED UNDERSTANDING BUT STILL REFUSED. INFORMED DR VILLA. ALSO MADE AWARE THAT PT STILL ON NPO BUT REFUSING IVF. PER MD, HE WILL DO HIS ROUNDS, NO ORDERS RECEIVED.
[2022-03-04] MEDS: carvediloL 6.25 MG TAB PO SCH ×2 (08:00→17:00)
[2022-03-04] MEDS: DEXT 5% /NACL 0.9% 1,000 ML IV SCH (08:19)
[2022-03-04] MEDS: TAMSULOSIN 0.4 MG CAP PO SCH (08:30)
[2022-03-04] MEDS: FINASTERIDE 5 MG TAB PO SCH (09:00)
--- NOTE | 2022-03-04 09:23 | NUR ---
PT REFUSED MEDS. ATTEMPTED TO CONNECT PT TO IVF, PT REFUSED. RISKS AND BENEFITS EXPLAINED 3X. PT VERBALIZED UNDERSTANDING BUT STILL REFUSED. MADE AWARE.
[2022-03-04] MEDS: FLUoxetine 10 MG CAP PO SCH (10:00)
--- NOTE | 2022-03-04 10:11 | NUR ---
PATIENT REFUSED SCHEDULED MEDICATION. EXPLAINED RISK AND BENEFITS BUT STILL REFUSED.
--- NOTE | 2022-03-04 10:25 | NUR ---
DR VILLA AT BEDSIDE.
--- NOTE | 2022-03-04 10:50 | NUR ---
PT AYAH CHAVEZ, SPOKE TO DR VILLA AT BEDSIDE. DISCUSSED POC. RECEIVED ORDERS. KEEP PT FOR 1 MORE DAY, ADVANCE DIET TO REGULAR DIET, DC IVF, FF-UP LAB. WILL CALL LAB FOR BLOOD DRAW, PT NOW OK FOR BLOOD DRAW.
--- NOTE | 2022-03-04 11:15 | NUR ---
PT AGREED FOR MORNING CARE. CLEANED AND CHANGED PT DIAPERS, GOWN AND BEDDINGS. NOTED HEMATURIA. PT FOLLOWS DIRECTION. TOLERATED WELL. PT EATING CRACKERS AND WARM SOUP. WITH VISITOR AT BEDSIDE.
[2022-03-04 11:19] LABS: BASOPHILS % (AUTO) 1.2 % (0.0-2.0); EOSINOPHILS # (AUTO) 0.1 K/uL (0-0.4); EOSINOPHILS % (AUTO) 2.6 % (0.0-4.0); LYMPHOCYTES # (AUTO) 0.7 K/uL (2.0-11.5); LYMPHOCYTES % (AUTO) 17.6 % (20.5-51.1); MEAN CORPUSCULAR HEMOGLOBIN 31 pg (27-31); MEAN CORPUSCULAR HGB CONC 34 g/dL (33-37); MONOCYTES # (AUTO) 0.3 K/uL (0.8-1.0); MONOCYTES % (AUTO) 8.1 % (1.7-9.3); NEUTROPHILS # (AUTO) 2.7 K/uL (1.8-7.7); NEUTROPHILS % (AUTO) 70.5 % (42.2-75.2); PLATELET COUNT (AUTO) 153 K/uL (140-450); RED BLOOD CELL COUNT(AUTO) 1.92 MIL/uL (4.20-6.10); RED CELL DISTRIBUTION WIDTH 14.4 % (11.6-13.7); WHITE BLOOD COUNT (AUTO) 3.9 K/uL (4.8-10.8)
[2022-03-04 11:52] LABS: ANION GAP 7.9 (8-16); CARBON DIOXIDE 29.2 mmol/L (21-32); CHLORIDE 110 mmol/L (98-107); CREATININE 0.7 mg/dL (0.6-1.3); GLUCOSE 109 mg/dL (74-106); POTASSIUM 4.1 mmol/L (3.5-5.1); SODIUM SERUM 143 mmol/L (136-145); UREA NITROGEN, BLOOD 13 mg/dL (7-18)
[2022-03-04 12:00] VITALS: BP 127/46
[2022-03-04 12:08] LABS: HEMATOCRIT 17.9 % (36-52)
--- NOTE | 2022-03-04 12:08 | NUR ---
RECEIVED CRITICAL LAB VALUE FROM LAB. Hg-6. MADE AWARE. PT FOR BLOOD TRANSFUSION, 1PRBC. FOLLOWED-UP WITH LAB.
[2022-03-04 16:00] VITALS: BP 126/38
--- NOTE | 2022-03-04 17:00 | NUR ---
STARTED 1 PRBC BLOOD TRANSFUSION. V/S STABLE.
--- NOTE | 2022-03-04 19:10 | NUR ---
GAVE BEDSIDE REPORT TO GIS MANAGER NURSE CLINT FOR CONTINUITY OF CARE. BLOOD TRANSFUSION ON GOING. NO BLOOD TRANSFUSION REACTION NOTED. ALL NEEDS MET THROUGHOUT SHIFT. V/S STABLE. PT IS IN STABLE CONDITION.
--- NOTE | 2022-03-04 19:30 | NUR ---
RECEIVED REPORT FROM DAY SHIFT NURSE FOR CONTINUITY OF CARE. PT AWAKE, IN BED,EATING HIS DINNER. NURSE ALLA FEEDING THE PATIENT. RESPIRATIONS EVEN AND UNLABORED ON RA. NO DISTRESS NOTED. BLOOD TRANSFUSION ONGOING.NO COMPLAINTS OF PAIN. SKIN INTACT, WARM AND DRY. ALL PRECAUTIONS IN PLACE. CALL LIGHT WITHIN REACH. WILL CONTINUE TO MONITOR.
[2022-03-04 20:00] VITALS: BP 129/42
[2022-03-04] MEDS: ATORVASTATIN 20 MG TAB PO SCH (20:26)
[2022-03-04 23:39] LABS: HEMATOCRIT 19.8 % (36-52); HEMOGLOBIN 6.8 g/dL (12.0-18.0)
--- NOTE | 2022-03-05 00:12 | NUR ---
RECEIVED ORDER FROM DR. RODRIGUES OF 1 UNIT OF BLOOD FOR HGB 6.8 AND HCT 19.8.
--- NOTE | 2022-03-05 02:23 | NUR ---
BLOOD IS READY. PT IS REFUSING BLOOD TRANSFUSION FOR NOW AND IS SAYING HE IS OKAY AND HE DOESN'T NEED IT.
--- NOTE | 2022-03-05 02:29 | NUR ---
ATTEMPTED TO GIVE BLOOD TRANSFUSION AGAIN BUT PATIENT IS REFUSING. EXPLAINED THE BENEFITS OF GETTING BLOOD TRANSFUSION BUT STILL REFUSING. WILL TRY TO AGAIN LATER.
--- NOTE | 2022-03-05 03:25 | NUR ---
PT FINALLY AGREED TO GET BLOOD TRANSFUSION. WILL CONTINUE TO MONITOR
--- NOTE | 2022-03-05 03:30 | NUR ---
2MG MORPHINE GIVEN DUE TO COMPLAINS OF SEVERE LEG PAINS.
--- NOTE | 2022-03-05 07:35 | NUR ---
PT IS STABLE. NO ACUTE EVENTS THROUGHOUT THE NIGHT.ALL NEEDS MET. ALL PRECAUTIONS IN PLACE.NO S/SX OF DISTRESS NOTED. CALL LIGHT WITHIN REACH.ALL PRECAUTIONS IN PLACE. WILL ENDORSE TO DAY SHIFT RN.
[2022-03-05] MEDS: carvediloL 6.25 MG TAB PO SCH ×3 (08:00→17:00)
[2022-03-05] MEDS: TAMSULOSIN 0.4 MG CAP PO SCH ×2 (08:30→14:02)
[2022-03-05] MEDS: FINASTERIDE 5 MG TAB PO SCH ×2 (09:00→14:02)
[2022-03-05] MEDS: FLUoxetine 10 MG CAP PO SCH ×2 (10:00→14:03)
[2022-03-05 13:40] VITALS: BP 124/47
[2022-03-05 14:32] LABS: BASOPHILS % (AUTO) 1.2 % (0.0-2.0); EOSINOPHILS # (AUTO) 0.2 K/uL (0-0.4); EOSINOPHILS % (AUTO) 4.3 % (0.0-4.0); HEMATOCRIT 21.7 % (36-52); HEMOGLOBIN 7.5 g/dL (12.0-18.0); LYMPHOCYTES # (AUTO) 0.9 K/uL (2.0-11.5); LYMPHOCYTES % (AUTO) 21.8 % (20.5-51.1); MEAN CORPUSCULAR HEMOGLOBIN 31 pg (27-31); MEAN CORPUSCULAR HGB CONC 35 g/dL (33-37); MEAN CORPUSCULAR VOLUME 88.7 fL (80-94); MONOCYTES # (AUTO) 0.4 K/uL (0.8-1.0); MONOCYTES % (AUTO) 10.4 % (1.7-9.3); NEUTROPHILS # (AUTO) 2.4 K/uL (1.8-7.7); NEUTROPHILS % (AUTO) 62.3 % (42.2-75.2); PLATELET COUNT (AUTO) 172 K/uL (140-450); RED BLOOD CELL COUNT(AUTO) 2.44 MIL/uL (4.20-6.10); RED CELL DISTRIBUTION WIDTH 14.6 % (11.6-13.7); WHITE BLOOD COUNT (AUTO) 3.9 K/uL (4.8-10.8)
[2022-03-05 15:28] LABS: ANION GAP 9.7 (8-16); CARBON DIOXIDE 27.3 mmol/L (21-32); CHLORIDE 109 mmol/L (98-107); CREATININE 0.7 mg/dL (0.6-1.3); GLUCOSE 105 mg/dL (74-106); SODIUM SERUM 142 mmol/L (136-145); UREA NITROGEN, BLOOD 15 mg/dL (7-18)
--- NOTE | 2022-03-05 16:57 | NUR ---
03/05/22 RD INITIAL ASSESSMENT COMPLETED PLEASE REFER TO NUTRITION ASSESSMENT UNDER CARE ACTIVITY FOR ESTIMATED NUTRITIONAL NEEDS. 1. RECOMMEND CARDIAC DIET, TOLERATED. 2. RECOMMEND ENSURE 1XDAY, FOR NUTRITION SUPPORT. 3. MONITOR PO INTAKE, GI, LAB VALUES. 4. RD TO FOLLOW-UP 7 DAYS, LOW RISK REVIEWED BY ANGELICA GREY RD
--- NOTE | 2022-03-05 19:30 | NUR ---
RECEIVED REPORT FROM DAY SHIFT NURSE FOR CONTINUITY OF CARE. PT AWAKE, IN BED,EATING HIS DINNER.RESPIRATIONS EVEN AND UNLABORED ON RA. NO DISTRESS NOTED.. SKIN INTACT, WARM AND DRY. ALL PRECAUTIONS IN PLACE. CALL LIGHT WITHIN REACH. WILL CONTINUE TO MONITOR.1
[2022-03-05] MEDS: ATORVASTATIN 20 MG TAB PO SCH (21:51)
--- NOTE | 2022-03-05 22:00 | NUR ---
SCHEDULED MEDICATION GIVEN. PT TOLERATED WELL.WILL CONTINUE TO MONITOR.
[2022-03-06] VITALS: BP 124/43
[2022-03-06 06:01] LABS: BASOPHILS % (AUTO) 0.9 % (0.0-2.0); EOSINOPHILS # (AUTO) 0.2 K/uL (0-0.4); HEMATOCRIT 22.3 % (36-52); HEMOGLOBIN 7.6 g/dL (12.0-18.0); LYMPHOCYTES % (AUTO) 20.1 % (20.5-51.1); MEAN CORPUSCULAR HEMOGLOBIN 31 pg (27-31); MEAN CORPUSCULAR HGB CONC 34 g/dL (33-37); MEAN CORPUSCULAR VOLUME 90.2 fL (80-94); MONOCYTES # (AUTO) 0.4 K/uL (0.8-1.0); MONOCYTES % (AUTO) 9.3 % (1.7-9.3); NEUTROPHILS # (AUTO) 3.1 K/uL (1.8-7.7); NEUTROPHILS % (AUTO) 64.7 % (42.2-75.2); PLATELET COUNT (AUTO) 167 K/uL (140-450); RED BLOOD CELL COUNT(AUTO) 2.47 MIL/uL (4.20-6.10); RED CELL DISTRIBUTION WIDTH 14.5 % (11.6-13.7); WHITE BLOOD COUNT (AUTO) 4.8 K/uL (4.8-10.8)
[2022-03-06 06:37] LABS: ANION GAP 9.9 (8-16); CARBON DIOXIDE 27.2 mmol/L (21-32); CHLORIDE 109 mmol/L (98-107); CREATININE 0.7 mg/dL (0.6-1.3); GLUCOSE 94 mg/dL (74-106); POTASSIUM 4.1 mmol/L (3.5-5.1); SODIUM SERUM 142 mmol/L (136-145); UREA NITROGEN, BLOOD 15 mg/dL (7-18)
--- NOTE | 2022-03-06 07:30 | NUR ---
RECEIVED REPORT FROM DAY SHIFT NURSE CLINT FOR CONTINUITY OF CARE. PATIENT IS STABLE.
[2022-03-06 08:00] VITALS: BP 131/49
[2022-03-06] MEDS: TAMSULOSIN 0.4 MG CAP PO SCH (08:33)
[2022-03-06] MEDS: carvediloL 6.25 MG TAB PO SCH ×2 (08:33→17:19)
[2022-03-06] MEDS: FINASTERIDE 5 MG TAB PO SCH (08:34)
[2022-03-06] MEDS: FLUoxetine 10 MG CAP PO SCH (09:52)
--- NOTE | 2022-03-06 10:24 | NUR ---
ENDORSED CARE OF PATIENT TO DAY SHIFT NURSE LAMONT FOR CONTINUITY OF CARE. PATIENT IS STABLE.
[2022-03-06 16:00] VITALS: BP 114/37
--- NOTE | 2022-03-06 17:01 | NUR ---
MESSAGED MD STEVE CHAVEZ WANTS TO SPEAK WITH MD REGARDING PT PROGNOSIS NUMBER PROVIDED AYAH [phone]
--- NOTE | 2022-03-06 17:03 | NUR ---
PATIENT INCREASINGLY AGITATED REMOVED CHUCKS THREW IT ON THE FLOOR HITTING AT STAFF UNABLE TO REDIRECT WILL GIVE ATIVAN ORDERED
[2022-03-06 20:00] VITALS: BP 139/63
--- NOTE | 2022-03-06 20:00 | NUR ---
pt is resting on the bed and calm. no acute respiratory distress noted.
--- NOTE | 2022-03-06 22:00 | NUR ---
pt is able to swallow his medications. pt tolerated well
[2022-03-06] MEDS: ATORVASTATIN 20 MG TAB PO SCH (22:25)
[2022-03-07] VITALS: BP 126/50
[2022-03-07 06:09] LABS: BASOPHILS % (AUTO) 0.9 % (0.0-2.0); EOSINOPHILS # (AUTO) 0.4 K/uL (0-0.4); EOSINOPHILS % (AUTO) 10.4 % (0.0-4.0); HEMATOCRIT 21.7 % (36-52); HEMOGLOBIN 7.4 g/dL (12.0-18.0); LYMPHOCYTES # (AUTO) 1.1 K/uL (2.0-11.5); MEAN CORPUSCULAR HEMOGLOBIN 31 pg (27-31); MEAN CORPUSCULAR HGB CONC 34 g/dL (33-37); MEAN CORPUSCULAR VOLUME 90.5 fL (80-94); MONOCYTES # (AUTO) 0.4 K/uL (0.8-1.0); MONOCYTES % (AUTO) 10.2 % (1.7-9.3); NEUTROPHILS # (AUTO) 2.1 K/uL (1.8-7.7); NEUTROPHILS % (AUTO) 51.5 % (42.2-75.2); PLATELET COUNT (AUTO) 189 K/uL (140-450); RED CELL DISTRIBUTION WIDTH 14.4 % (11.6-13.7); WHITE BLOOD COUNT (AUTO) 4.1 K/uL (4.8-10.8)
[2022-03-07 06:30] LABS: ANION GAP 7.4 (8-16); CARBON DIOXIDE 29.5 mmol/L (21-32); CHLORIDE 106 mmol/L (98-107); CREATININE 0.7 mg/dL (0.6-1.3); GLUCOSE 91 mg/dL (74-106); POTASSIUM 3.9 mmol/L (3.5-5.1); SODIUM SERUM 139 mmol/L (136-145); UREA NITROGEN, BLOOD 14 mg/dL (7-18)
[2022-03-07 08:00] VITALS: BP 137/51
[2022-03-07] MEDS: FINASTERIDE 5 MG TAB PO SCH (09:55)
[2022-03-07] MEDS: FLUoxetine 10 MG CAP PO SCH (09:55)
[2022-03-07] MEDS: TAMSULOSIN 0.4 MG CAP PO SCH (09:56)
[2022-03-07] MEDS: carvediloL 6.25 MG TAB PO SCH ×2 (10:00→17:08)
--- NOTE | 2022-03-07 15:20 | NUR ---
PT C/O HEARTBURN. INFORMED DR SHEPHERD. ORDERED PROTONIX ONE TIME DOSE AND DAILY.
--- NOTE | 2022-03-07 15:29 | NUR ---
ADMINISTERED ONE TIME PROTONIX DOSE. PT TOLERATED WELL. AFTER MED ADMINISTRATION PT ASKED NURSE TO TURN OFF LIGHT, NURSE TURNED LIGHT OFF, THEN PT PROCEEDED TO YELL "NOW GET OUT".
[2022-03-07] MEDS ORDERED: PANTOPRAZOLE 40 MG TABEC PO SCH (15:30)
[2022-03-07 16:00] VITALS: BP 124/45
--- NOTE | 2022-03-07 17:08 | NUR ---
ADMINISTERED SCHEDULED MEDS. PT TOLERATING WELL.
--- NOTE | 2022-03-07 19:27 | NUR ---
ENDORSED PT TO LEAN CONSULTANT NURSE FOR CONTINUITY OF CARE. PT IN STABLE CONDITION.
[2022-03-07] MEDS: ATORVASTATIN 20 MG TAB PO SCH (20:27)
[2022-03-07 21:55] VITALS: BP 117/45
--- NOTE | 2022-03-08 05:34 | NUR ---
Patient A/O x 1, VSS, RA. No signs of resp distress/sob, no complaints of pain. No acute events overnight. Continuing to monitor I/Os.
--- NOTE | 2022-03-08 07:30 | NUR ---
RECEIVED PT FROM WILDLIFE REFUGE MANAGER NURSE FOR CONTINUITY OF CARE.
[2022-03-08 08:00] VITALS: BP 142/63
[2022-03-08] MEDS: FINASTERIDE 5 MG TAB PO SCH (09:44)
[2022-03-08] MEDS: carvediloL 6.25 MG TAB PO SCH ×2 (09:44→17:28)
[2022-03-08] MEDS: PANTOPRAZOLE 40 MG TABEC PO SCH (09:45)
[2022-03-08] MEDS: TAMSULOSIN 0.4 MG CAP PO SCH (09:45)
--- NOTE | 2022-03-08 09:45 | NUR ---
ALL SCHEDULED MEDS GIVEN. PT COOPERATIVE. TOLERATING MEDS WELL.
[2022-03-08] MEDS: FLUoxetine 10 MG CAP PO SCH (10:02)
--- NOTE | 2022-03-08 12:57 | NUR ---
PT SITTING IN BED EATING LUNCH.
--- NOTE | 2022-03-08 15:20 | NUR ---
MAKING ROUNDS PT LAYING DOWN IN BED WITH EYES CLOSED. VISIBLE CHEST RISE AND FALL. RESPIRATIONS EVEN AND UNLABORED. NO DISTRESS NOTED. CALL LIGHT WITHIN REACH.
[2022-03-08 15:54] LABS: BASOPHILS % (AUTO) 1.1 % (0.0-2.0); EOSINOPHILS # (AUTO) 0.2 K/uL (0-0.4); EOSINOPHILS % (AUTO) 5.9 % (0.0-4.0); HEMATOCRIT 22.6 % (36-52); HEMOGLOBIN 7.7 g/dL (12.0-18.0); LYMPHOCYTES # (AUTO) 0.9 K/uL (2.0-11.5); LYMPHOCYTES % (AUTO) 21.5 % (20.5-51.1); MEAN CORPUSCULAR HEMOGLOBIN 31 pg (27-31); MEAN CORPUSCULAR HGB CONC 34 g/dL (33-37); MEAN CORPUSCULAR VOLUME 90.9 fL (80-94); MONOCYTES # (AUTO) 0.4 K/uL (0.8-1.0); NEUTROPHILS # (AUTO) 2.6 K/uL (1.8-7.7); NEUTROPHILS % (AUTO) 62.5 % (42.2-75.2); PLATELET COUNT (AUTO) 237 K/uL (140-450); RED BLOOD CELL COUNT(AUTO) 2.49 MIL/uL (4.20-6.10); RED CELL DISTRIBUTION WIDTH 14.7 % (11.6-13.7); WHITE BLOOD COUNT (AUTO) 4.2 K/uL (4.8-10.8)
[2022-03-08 16:00] VITALS: BP 126/48
--- NOTE | 2022-03-08 19:48 | NUR ---
ENDORSED PT TO LAND DEGRADATION ANALYST NURSE FOR CONTINUITY OF CARE. PT IN STABLE CONDITION.
--- NOTE | 2022-03-08 19:50 | NUR ---
RECEIVED PT FROM AM NURSE FOR CONTINUITY OF CARE. PT IS STABLE
[2022-03-08 20:00] VITALS: BP 133/51
[2022-03-08] MEDS: ATORVASTATIN 20 MG TAB PO SCH (20:46)
--- NOTE | 2022-03-09 | NUR ---
PATIENT ASLEEP,ALL SAFETY MEASURES IN PLACE, CALL LIGHT WITHIN EASY REACH.NO DISTRESS NOTED
[2022-03-09 08:00] VITALS: BP 132/50
[2022-03-09] MEDS: FLUoxetine 10 MG CAP PO SCH (09:13)
[2022-03-09] MEDS: carvediloL 6.25 MG TAB PO SCH ×2 (09:13→17:57)
[2022-03-09] MEDS: PANTOPRAZOLE 40 MG TABEC PO SCH (09:13)
[2022-03-09] MEDS: FINASTERIDE 5 MG TAB PO SCH (09:13)
[2022-03-09] MEDS: TAMSULOSIN 0.4 MG CAP PO SCH (09:13)
[2022-03-09] MEDS ORDERED: FINA5TAB5 PO (09:26)
[2022-03-09 10:24] LABS: EOSINOPHILS # (AUTO) 0.2 K/uL (0-0.4); EOSINOPHILS % (AUTO) 4.4 % (0.0-4.0); HEMATOCRIT 26.5 % (36-52); HEMOGLOBIN 8.8 g/dL (12.0-18.0); LYMPHOCYTES # (AUTO) 0.8 K/uL (2.0-11.5); LYMPHOCYTES % (AUTO) 16.9 % (20.5-51.1); MEAN CORPUSCULAR HEMOGLOBIN 31 pg (27-31); MEAN CORPUSCULAR HGB CONC 33 g/dL (33-37); MEAN CORPUSCULAR VOLUME 92.7 fL (80-94); MONOCYTES # (AUTO) 0.3 K/uL (0.8-1.0); MONOCYTES % (AUTO) 6.8 % (1.7-9.3); NEUTROPHILS # (AUTO) 3.2 K/uL (1.8-7.7); NEUTROPHILS % (AUTO) 70.9 % (42.2-75.2); PLATELET COUNT (AUTO) 247 K/uL (140-450); RED BLOOD CELL COUNT(AUTO) 2.86 MIL/uL (4.20-6.10); RED CELL DISTRIBUTION WIDTH 14.9 % (11.6-13.7); WHITE BLOOD COUNT (AUTO) 4.6 K/uL (4.8-10.8)
[2022-03-09 10:37] LABS: ANION GAP 10.9 (8-16); CARBON DIOXIDE 30.1 mmol/L (21-32); CHLORIDE 103 mmol/L (98-107); GLUCOSE 92 mg/dL (74-106); SODIUM SERUM 140 mmol/L (136-145); UREA NITROGEN, BLOOD 17 mg/dL (7-18)
[2022-03-09 16:00] VITALS: BP 144/58
--- NOTE | 2022-03-09 17:17 | NUR ---
DC PLANNING: PATIENT HAS A DC ORDER TO RETURN TO [facility]. FAXED ALL PAPERWORK AND PER WON CAN GO TO ROOM 28A # TO GIVE REPORT [phone]. WON ARRANGED TRANSPORT WITH [facility] TRAN[facility] [phone] MANUFACTURING MANAGER TIME 6PM NOTIFIED MOSES GALLEGOS
--- NOTE | 2022-03-09 17:58 | NUR ---
REPORT GIVEN TO [facility] MACI[facility] AT [facility]. Doen GOLDEN RN.
[2022-03-09 17:59] VITALS: BP 144/58
--- NOTE | 2022-03-09 19:00 | NUR ---
TRANSPORTATION AT BEDSIDE TO PICK PATIENT UP. DISCHARGE INSTRUCTIONS AND PLAN OF CARE DISCUSSED WITH PATIENT. PATIENT UNABLE TO VERBALIZED UNDERSTANDING DUE TO CONFUSION. IV LEFT IN FOR CONTINUED IV ANTIBIOTIC THERAPY AT FACILITY. PATIENT DISCHARGED TO [facility]. Deon GOLDEN RN.
== END 2022-03-09 19:05 | DRG 698 ==
LOC: MED 10:54 → MTU 13:17
PROVIDERS: ADMIT Family Medicine; ATTEND Family Medicine
PROC: 30233N1 Transfusion of Nonautologous Red Blood Cells into Peripheral Vein, Percutaneous Approach (ICD-10-PCS; principal; 2022-03-03)
DX: T83.091A Other mechanical complication of indwelling urethral catheter, initial encounter (principal); E43 Unspecified severe protein-calorie malnutrition; R31.9 Hematuria, unspecified; Z20.822 Contact with and (suspected) exposure to COVID-19; I48.91 Unspecified atrial fibrillation; N40.0 Benign prostatic hyperplasia without lower urinary tract symptoms; I25.10 Atherosclerotic heart disease of native coronary artery without angina pectoris; F03.90 Unspecified dementia, unspecified severity, without behavioral disturbance, psychotic disturbance, mood disturbance, and anxiety; I50.9 Heart failure, unspecified; D64.9 Anemia, unspecified; X58.XXXA Exposure to other specified factors, initial encounter; Y93.89 Activity, other specified; Z79.899 Other long term (current) drug therapy; Z68.26 Body mass index [BMI] 26.0-26.9, adult; Z86.73 Personal history of transient ischemic attack (TIA), and cerebral infarction without residual deficits; Z95.1 Presence of aortocoronary bypass graft; Z95.810 Presence of automatic (implantable) cardiac defibrillator; Y92.89 Other specified places as the place of occurrence of the external cause; Y99.8 Other external cause status
CPT/HCPCS: 36415; 36430; 71045; 76770; 80048; 80053; 83735; 85018; 85025; 86886; 86900; 86901; 86920; 87040; 96361; 96365; 99291; J2060; J2270; J3370; P9016; Q0092